=== PATIENT | male | born 1955 | race Caucasian/White ===

== ENCOUNTER 2016-11-12 07:26 | Day surgery (SDC) | payer OTHER ==
[2016-11-12] MEDS ORDERED: LACTATED RINGERS 1,000 ML ONE (07:52)
[2016-11-12] MEDS ORDERED: IV START KIT ONE (07:52)
[2016-11-12] MEDS ORDERED: PROPOFOL 40 ML IV ONE (09:27)
== END 2016-11-12 10:20 | disposition home or self-care (01) ==
LOC: SDC 07:26
PROVIDERS: ATTEND Family Medicine
PROC: 0DJD8ZZ Inspection of Lower Intestinal Tract, Via Natural or Artificial Opening Endoscopic (ICD-10-PCS; principal; 2016-11-12)
DX: Z12.11 Encounter for screening for malignant neoplasm of colon (principal); Z80.0 Family history of malignant neoplasm of digestive organs; K60.3 Anal fistula; F32.9 Major depressive disorder, single episode, unspecified; E78.5 Hyperlipidemia, unspecified; I10 Essential (primary) hypertension; E03.9 Hypothyroidism, unspecified; M06.9 Rheumatoid arthritis, unspecified; H15.009 Unspecified scleritis, unspecified eye; Z88.1 Allergy status to other antibiotic agents
CPT/HCPCS: 45378; J7120